=== PATIENT | female | born 1950 | race African-American/Black ===

== ENCOUNTER 2017-02-03 19:45 | Emergency (ER) | payer OTHER ==
[~2017-02-03] VITALS: Ht 162.6 cm; Wt 73.5 kg
[~2017-02-03 19:45] MED LIST: ASPI-496 PO; CALC-141 PO; CHOL10002 PO; LISI5TAB7 PO; LORA0.5T PO
[2017-02-03 20:45] VITALS: BP 115/82
== END 2017-02-03 21:34 | disposition home or self-care (01) ==
LOC: ED 21:24
DX: J02.9 Acute pharyngitis, unspecified (principal); R05 Cough; R09.81 Nasal congestion; I10 Essential (primary) hypertension
CPT/HCPCS: 71020; 93005; 99284

== ENCOUNTER 2018-03-16 05:53 | Observation (INO) | payer MEDICARE ==
[2018-03-13 10:53] VITALS: BP 135/91
[2018-03-13 11:49] LABS: ALANINE AMINOTRANSFERASE 17 U/L (12-78); ALBUMIN 3.4 g/dL (3.4-5.0); ANION GAP 6 mmol/L (5-15); CALCIUM 8.6 mg/dL (8.5-10.1); CHLORIDE 108 mmol/L (98-107)
[2018-03-13 11:52] LABS: ALKALINE PHOSPHATASE 62 U/L (45-117); BILIRUBIN,TOTAL 0.4 mg/dL (0.2-1.0); CREATININE 0.84 mg/dL (0.55-1.02); TOTAL PROTEIN 7.2 g/dL (6.4-8.2)
[2018-03-13 12:41] LABS: BASOPHILS # (AUTO) 0.01 x10^3/uL (0-0.1); BASOPHILS % (AUTO) 0 % (0-1); EOSINOPHILS # (AUTO) 0.09 x10^3/uL (0-0.4); EOSINOPHILS % (AUTO) 2 % (1-7); LYMPHOCYTES # (AUTO) 1.73 x10^3/uL (1-3.4); LYMPHOCYTES % (AUTO) 40 % (22-44); MD NO; MEAN CORPUSCULAR HEMOGLOBIN 30.8 pg (27.0-34.8); MEAN CORPUSCULAR HGB CONC 33.1 g/dL (32.4-35.8); MEAN CORPUSCULAR VOLUME 93.1 fL (80-100); MEAN PLATELET VOLUME 8.3 fL (7.4-10.4); MONOCYTES # (AUTO) 0.44 x10^3/uL (0.2-0.8); MONOCYTES % (AUTO) 10 % (2-9); NEUTROPHILS # (AUTO) 2.08 x10^3/uL (1.8-6.8); NEUTROPHILS % (AUTO) 48 % (42-75); PLATELET COUNT 224 x10^3/uL (130-400); RED BLOOD COUNT 4.26 x10^6/uL (3.82-5.3); RED CELL DISTRIBUTION WIDTH 13.6 % (9.6-15.2)
[~2018-03-16] VITALS: Ht 165.1 cm; Wt 72.4 kg
[~2018-03-16 05:53] MED LIST changes: +CALC200T3 PO; +[UNRECOGNIZED DRUG - REMARK] PO
[2018-03-16] MEDS ORDERED: LACTATED RINGERS 1,000 ML IV SCH (06:52)
[2018-03-16] MEDS ORDERED: ESTROGENS CONJUGATED VAG CRM 0.625MG/1G, 30GM ONE (07:05)
[2018-03-16] MEDS ORDERED: EPINEPHRINE 1 MG/ML, 1ML ONE (07:05)
[2018-03-16] MEDS ORDERED: BUPIVACAINE/PF 0.25% ONE (07:05)
[2018-03-16] MEDS ORDERED: PROPOFOL 10 MG/ML, 20ML ONE ×2 (07:25)
[2018-03-16] MEDS ORDERED: METOCLOPRAMIDE 5 MG/ML, 2ML ONE (07:25)
[2018-03-16] MEDS ORDERED: ONDANSETRON 2MG/ML, 2ML ONE (07:25)
[2018-03-16] MEDS ORDERED: DEXAMETHASONE 4 MG/ML, 1ML ONE (07:25)
[2018-03-16] MEDS ORDERED: SUCCINYLCHOLINE 20 MG/ML, 10ML ONE (07:25)
[2018-03-16] MEDS ORDERED: CEFAZOLIN 1,000 MG ONE (07:25)
[2018-03-16] MEDS ORDERED: FENTANYL PF 100 MCG/2ML ONE ×2 (07:29→10:17)
[2018-03-16] MEDS ORDERED: MIDAZOLAM 1 MG/ML, 2ML ONE (07:29)
[2018-03-16] MEDS ORDERED: BUPIVACAINE/PF-EPI 0.25% 1:200K IM ONE (08:10)
[2018-03-16] MEDS ORDERED: FUROSEMIDE 20 MG/2 ML ONE (08:34)
[2018-03-16] MEDS ORDERED: INDIGO CARMINE 0.8%, 5ML ONE ×2 (08:34→08:35)
[2018-03-16] MEDS ORDERED: KETAMINE 10 MG/ML, 20ML ONE (08:43)
[2018-03-16] MEDS ORDERED: OXYcodone 5 MG/5 ML ORAL.SOL UDC ONE (10:18)
[2018-03-16] MEDS: FENTANYL PF 100 MCG/2ML IV PRN ×2 (10:20→10:35)
[2018-03-16] MEDS: OXYcodone 5 MG/5 ML ORAL.SOL UDC PO PRN ×2 (10:22→15:44)
[2018-03-16] MEDS ORDERED: MIDAZOLAM 1 MG/ML, 2ML IV PRN (10:30)
[2018-03-16] MEDS ORDERED: HYDROmorphone 1 MG/ML, 1ML IV PRN (10:30)
[2018-03-16] MEDS ORDERED: MEPERIDINE/PF 25MG/0.5ML IVPush PRN (10:30)
[2018-03-16] MEDS ORDERED: LABETALOL 5MG/ML, 20ML IV PRN (10:30)
[2018-03-16] MEDS ORDERED: ONDANSETRON 2MG/ML, 2ML IVPush PRN (10:30)
[2018-03-16] MEDS ORDERED: HYDROmorphone 2 MG/ML, 1ML ONE (13:08)
[2018-03-16] MEDS ORDERED: MORPHINE SULFATE 4 MG/ML, 1ML IVPush PRN (17:00)
[2018-03-16 17:47] VITALS: BP 145/90
[2018-03-16] MEDS: OXYcodone/APAP 5/325MG TABLET PO PRN (19:52)
[2018-03-16] MEDS: ONDANSETRON 2MG/ML, 2ML IVPush PRN (19:56)
[2018-03-16 21:20] VITALS: BP 131/82
[2018-03-17 00:05] VITALS: BP 114/70
[2018-03-17] MEDS: OXYcodone/APAP 5/325MG TABLET PO PRN ×2 (02:47→08:34)
[2018-03-17 04:02] VITALS: BP 116/70
[2018-03-17 08:22] VITALS: BP 121/76
[2018-03-17] MEDS: ONDANSETRON 2MG/ML, 2ML IVPush PRN (08:34)
[2018-03-17 12:00] VITALS: BP 119/70
== END 2018-03-17 12:40 | disposition home or self-care (01) ==
LOC: OUT 05:53 → ORIP 16:39 → 4NOR 17:35
PROVIDERS: ADMIT Obstetrics & Gynecology; ATTEND Obstetrics & Gynecology
DX: D25.1 Intramural leiomyoma of uterus (principal); N80.0 Endometriosis of uterus; N72 Inflammatory disease of cervix uteri; N81.4 Uterovaginal prolapse, unspecified; E78.5 Hyperlipidemia, unspecified; I10 Essential (primary) hypertension; Z82.49 Family history of ischemic heart disease and other diseases of the circulatory system; Z90.710 Acquired absence of both cervix and uterus; N84.0 Polyp of corpus uteri; N87.9 Dysplasia of cervix uteri, unspecified
CPT/HCPCS: 36415; 57210; 58260; 71046; 80053; 85014; 85025; 88307; 93005; 96374; 96376; G0378; J0171; J0330; J0690; J1100; J1940; J2250; J2405; J2704; J2765; J3010; J3490; J7120

== ENCOUNTER → 2018-05-31 | Outpatient (CLI) | payer MEDICARE | END | disposition home or self-care (01) | LOC: CFH 10:39 | PROVIDERS: ATTEND Nurse Practitioner Primary Care | DX: R42 Dizziness and giddiness (principal) | CPT/HCPCS: 93880 ==

== ENCOUNTER 2019-02-20 09:29 | Emergency (ER) | payer MEDICARE ==
[~2019-02-20] VITALS: Ht 162.6 cm; Wt 67.7 kg
[2019-02-20 09:56] VITALS: BP 170/98
--- NOTE | 2019-02-20 10:14 | NUR ---
LATE NOTE ENTRY FOR 0945: Pt presents to ED by EMS with c/o auditory and visual hallucinations and paranoia. Pt denies SI or HI to EMS. Pt states to ED RN, "Last night I held up a hammer and threatened by , but then I put it down on my printer and listened to my [employer] music and let the word get to me, and then I was ok." Pt believes "someone put something in my tea at work or home, I live around drug addicts." Pt states she is having auditory and visual hallucinations beginning "yesterday after drinking my tea at work." Pt cooperative, anxious, and discussing paranoid beliefs that, "everyone hates me, I know I am hated." Pt placed all personal belonings in two personal belonging bags that are labeled and placed in ED locker for safe keeping. Pt room secured for SI/HI and sitter near doorway in direct line of sight for observation. NADN. No needs expressed at this time. Pt ambulates with steady gait and balance. Pt provided clear, yellow urine for UA.
[2019-02-20 10:24] LABS: ALBUMIN 4.1 g/dL (3.4-5.0); ANION GAP 8 mmol/L (5-15); CALCIUM 9.3 mg/dL (8.5-10.1); CHLORIDE 110 mmol/L (98-107); CREATININE 0.86 mg/dL (0.55-1.02)
[2019-02-20 10:26] LABS: ACETAMINOPHEN < 2 mcg/mL (10-30)
[2019-02-20 10:27] LABS: SALICYLATE LEVEL < 1.7 mg/dL (2.8-20.0)
[2019-02-20 10:31] LABS: AMPHETAMINE SCREEN, URINE Negative (Negative); BARBITURATE SCREEN, URINE Negative (Negative); BENZODIAZEPINE SCREEN, URINE Negative (Negative); COCAINE SCREEN, URINE Negative (Negative); METHADONE SCREEN, URINE Negative (Negative); OPIATE SCREEN, URINE Negative (Negative)
[2019-02-20 10:38] LABS: CANNABINOID SCREEN, URINE Negative (Negative)
[2019-02-20 10:41] LABS: BASOPHILS # (AUTO) 0.02 x10^3/uL (0-0.1); BASOPHILS % (AUTO) 0 % (0-1); EOSINOPHILS # (AUTO) 0.04 x10^3/uL (0-0.4); EOSINOPHILS % (AUTO) 1 % (1-7); LYMPHOCYTES # (AUTO) 1.24 x10^3/uL (1-3.4); LYMPHOCYTES % (AUTO) 28 % (22-44); MD NO; MEAN CORPUSCULAR HGB CONC 33.8 g/dL (32.4-35.8); MEAN CORPUSCULAR VOLUME 91.7 fL (80-100); MEAN PLATELET VOLUME 8.4 fL (7.4-10.4); MONOCYTES # (AUTO) 0.26 x10^3/uL (0.2-0.8); MONOCYTES % (AUTO) 6 % (2-9); NEUTROPHILS % (AUTO) 64 % (42-75); PLATELET COUNT 222 x10^3/uL (130-400); RED BLOOD COUNT 4.58 x10^6/uL (3.82-5.3); RED CELL DISTRIBUTION WIDTH 13.8 % (9.6-15.2)
--- NOTE | 2019-02-20 10:49 | NUR ---
Provided report to SOC MD. Answered all questions. Provided pt with snacks, water, treaded socks, and warm blankets.
[2019-02-20] MEDS ORDERED: EZET10TA18 PO (11:05)
[2019-02-20] MEDS ORDERED: CYCL-259 PO (11:05)
[2019-02-20] MEDS ORDERED: MECL-76 PO (11:05)
--- NOTE | 2019-02-20 11:35 | NUR ---
Spoke to SOC MD. Answered all questions.
--- NOTE | 2019-02-20 12:06 | NUR ---
Provided bedside report to JACK Dillon. All questions answered. JACK Dillon to assume care of pt's at this time.
--- NOTE | 2019-02-20 12:37 | NUR ---
REPORT FROM DONALD SANTIAGO. PT TO BE DISCHARGED HOME. PT COOPERATIVE PLEASANT, VERBALIZES PLAN FOR DISCHARGE AND FOLLOW UP CARE. [employer] [facility] PROVIDED FOR SAFE TRANSPORT BACK TO CLINIC WHERE PT LEFT HER CAR.
== END 2019-02-20 12:40 | disposition home or self-care (01) ==
LOC: ED 10:04
DX: F22 Delusional disorders (principal); F41.1 Generalized anxiety disorder; I10 Essential (primary) hypertension
CPT/HCPCS: 36415; 80048; 80307; 82040; 85025; 99284

== ENCOUNTER 2020-09-04 07:57 | Emergency (ER) | payer MEDICARE ==
[~2020-09-04] VITALS: Ht 165.1 cm; Wt 68.2 kg
[~2020-09-04 07:57] MED LIST changes: +CYCL-259 PO; +EZET10TA70 PO; +MECL-76 PO
--- NOTE | 2020-09-04 08:08 | NUR ---
[place] OF ANXIETY BEGINING THIS AM, "THERE IS JUST SO MUCH GOING ON" PT THEN BEGINS TO SPEAK OF HOUSE REPAIRS THAT NEED TO BE DONE AROUND HER HOME. "I NEED TO TALK TO SOMEONE ABOUT THE REPAIRS IN MY HOME" PT MEDICATED ROVING WINDER 1MG VERSED ROVING WINDER, PT IN JUMPING FROM TOPIC TO TOPIC, NO C/O PAIN, SOB/COUGH. NO MEDICAL COMPLAINT VERBALIZED. ERP IN TO EVAL PT. SW CONSULT IF AVAILABLE. VSS, NO OTHER NEEDS AT THIS TIME
--- NOTE | 2020-09-04 08:42 | NUR ---
PT. WAS WALKED TO THE RESTROOM TO VOID AND THEN ASSISTED BACK TO HER ROOM. PT. WAS GIVEN DISCHARGE INSTRUCTIONS WITH UNDERSTANDING VERBALIZED. PT. IS AWAITING A RIDE. PT. HAS THE SIDERAILS UP X 2 AND A WARM BLANKET IN PLACE. REPORT WAS GIVEN TO THE PRIMARY RN.
[2020-09-04 08:45] VITALS: BP 162/82
== END 2020-09-04 08:48 | disposition home or self-care (01) ==
LOC: ED 08:29
DX: F43.9 Reaction to severe stress, unspecified (principal); I10 Essential (primary) hypertension; Z00.00 Encounter for general adult medical examination without abnormal findings
CPT/HCPCS: 99283